=== PATIENT | female | born 1965 | race Caucasian/White ===

== ENCOUNTER 2021-04-14 15:06 | Outpatient (CLI) | payer BC | END 2021-04-14 15:07 | disposition home or self-care (01) | LOC: BICMAMMO 15:06 | PROVIDERS: ATTEND Student in an Organized Health Care Education/Training Program | DX: Z12.31 Encounter for screening mammogram for malignant neoplasm of breast (principal); N64.89 Other specified disorders of breast; Z98.82 Breast implant status | CPT/HCPCS: 77063; 77067 ==

== ENCOUNTER 2021-05-13 10:24 | Outpatient (CLI) | payer BC | END 2021-05-13 10:25 | disposition home or self-care (01) | LOC: BICMAMMO 10:24 | PROVIDERS: ATTEND Student in an Organized Health Care Education/Training Program | DX: C50.412 Malignant neoplasm of upper-outer quadrant of left female breast (principal) | CPT/HCPCS: 19083; 88305; 88341; 88342 ==

== ENCOUNTER 2021-06-08 08:57 | Day surgery (SDC) | payer BC ==
[2021-06-04 13:51] VITALS: BMI 25.0
[2021-06-08] MEDS ORDERED: Fentanyl 100 MCG/2 ML VIAL ONE (11:52)
[2021-06-08] MEDS ORDERED: Isosulfan Blue 50 MG/5 ML VIAL ONE (11:55)
[2021-06-08] MEDS ORDERED: Bupivacaine 0.25% 10 ML VIAL ONE (11:55)
[2021-06-08] MEDS ORDERED: EPINEPHrine 1 MG/ML AMP ONE (11:55)
[2021-06-08] MEDS ORDERED: ceFAZolin 2 GM/DEX 5% 100 ML BAG ONE (12:06)
[2021-06-08] MEDS ORDERED: Ketorolac Tromethamine 30 MG/ML VIAL ONE (12:06)
[2021-06-08] MEDS ORDERED: Acetaminophen 500 MG TAB ONE (12:07)
[2021-06-08] MEDS ORDERED: Dexamethasone 20 MG/5 ML VIAL ONE (12:19)
[2021-06-08] MEDS ORDERED: Ondansetron PF 4 MG/2 ML Vial ONE (12:19)
[2021-06-08] MEDS ORDERED: Lidocaine 1% PF 5 ML VIAL ONE (12:19)
[2021-06-08] MEDS ORDERED: PROPOFOL 200 MG/20 ML VIAL ONE (12:19)
[2021-06-08] MEDS ORDERED: Lidocaine 1% w/Epinephrine 1:100K 30 ML VIAL ONE (12:40)
== END 2021-06-08 15:36 | disposition home or self-care (01) ==
LOC: SDC 08:57
PROVIDERS: ATTEND Specialist
PROC: 0HBU0ZZ Excision of Left Breast, Open Approach (ICD-10-PCS; principal; 2021-06-08)
PROC: 07B60ZX Excision of Left Axillary Lymphatic, Open Approach, Diagnostic (ICD-10-PCS; principal; 2021-06-08)
DX: C50.412 Malignant neoplasm of upper-outer quadrant of left female breast (principal); C77.3 Secondary and unspecified malignant neoplasm of axilla and upper limb lymph nodes; E07.9 Disorder of thyroid, unspecified; I10 Essential (primary) hypertension; Z17.0 Estrogen receptor positive status [ER+]; Z79.899 Other long term (current) drug therapy; Z88.1 Allergy status to other antibiotic agents; Z88.2 Allergy status to sulfonamides
CPT/HCPCS: 76098; 78195; 88305; 88307; A9541; C1713; J0171; J1100; J1885; J2405; J2704; J3010; Q9968; S0020

== ENCOUNTER 2021-06-22 11:40 | Day surgery (SDC) | payer BC ==
[2021-06-17 11:29] VITALS: BMI 25.0
[2021-06-22] MEDS ORDERED: Ketorolac Tromethamine 30 MG/ML VIAL ONE (12:56)
[2021-06-22] MEDS ORDERED: Acetaminophen 500 MG TAB ONE (12:56)
[2021-06-22] MEDS ORDERED: Bupivacaine 0.25% HCL 30 ML VIAL ONE (13:56)
[2021-06-22] MEDS ORDERED: Lidocaine 1% w/Epinephrine 1:100K 20 ML VIAL ONE (13:56)
[2021-06-22] MEDS ORDERED: Midazolam HCl 2 mg/2 ml Vial ONE (14:01)
[2021-06-22] MEDS ORDERED: Fentanyl 100 MCG/2 ML VIAL ONE (14:01)
[2021-06-22] MEDS ORDERED: ceFAZolin (BATCH) 2 GM/100 ML BAG ONE (14:05)
[2021-06-22] MEDS ORDERED: Ondansetron PF 4 MG/2 ML Vial ONE (14:09)
[2021-06-22] MEDS ORDERED: Dexamethasone 20 MG/5 ML VIAL ONE (14:09)
[2021-06-22] MEDS ORDERED: PROPOFOL 200 MG/20 ML VIAL ONE (14:09)
[2021-06-22] MEDS ORDERED: ePHEDrine 50 MG/ML VIAL ONE (14:09)
[2021-06-22] MEDS ORDERED: Lidocaine 1% PF 5 ML VIAL ONE (14:09)
== END 2021-06-22 16:42 | disposition home or self-care (01) ==
LOC: SDC 11:40
PROVIDERS: ATTEND Specialist
PROC: 0HBU0ZZ Excision of Left Breast, Open Approach (ICD-10-PCS; principal; 2021-06-22)
DX: C50.412 Malignant neoplasm of upper-outer quadrant of left female breast (principal); E07.9 Disorder of thyroid, unspecified; I10 Essential (primary) hypertension; Z17.0 Estrogen receptor positive status [ER+]; Z79.890 Hormone replacement therapy; Z79.899 Other long term (current) drug therapy; Z88.1 Allergy status to other antibiotic agents; Z88.2 Allergy status to sulfonamides
CPT/HCPCS: 88307; C1889; J0690; J1100; J1885; J2250; J2405; J2704; J3010; J3490; S0020

== ENCOUNTER 2021-11-11 10:38 | Outpatient (CLI) | payer BC | END 2021-11-11 10:39 | disposition home or self-care (01) | LOC: MRI 10:38 | PROVIDERS: ATTEND Neurological Surgery | DX: M43.16 Spondylolisthesis, lumbar region (principal); M43.17 Spondylolisthesis, lumbosacral region; M51.37 Other intervertebral disc degeneration, lumbosacral region; M48.07 Spinal stenosis, lumbosacral region | CPT/HCPCS: 72148 ==

== ENCOUNTER 2021-12-03 15:53 | Outpatient (CLI) | payer BC ==
[2021-12-03 16:47] LABS: Hemoglobin 12.4 g/dL (12.0-15.5); Mean Corpuscular HGB CONC 33.9 g/dL (32.0-36.0); Mean Corpuscular Hemoglobin 32.1 pg (27.0-33.0); Mean Corpuscular Volume 94.8 fl (81.6-98.3); Mean Platelet Volume 9.6 fl (7.4-10.4); Platelet Count 279 10x3/uL (150-450); RBC Distribution Width 12.3 % (11.5-14.5); Red Blood Cell (RBC) Count 3.86 10x6/uL (3.90-5.03); White Blood Cell (WBC) Count 4.4 10x3/uL (3.5-10.5)
[2021-12-03 17:04] LABS: Anion Gap 12 mmol/L (10-20); BUN (Urea Nitrogen) 12 mg/dL (9.8-20.1); Calc. Creatinine Clearance 0 mL/min (70-130); Calcium 9.3 mg/dL (7.8-10.44); Carbon Dioxide 29 mmol/L (22-29); Chloride 101 mmol/L (98-107); Glucose 127 mg/dL (70-105); Potassium 3.7 mmol/L (3.5-5.1); Sodium 138 mmol/L (136-145)
[2021-12-03 17:47] LABS: Estimated GFR 81
== END 2021-12-03 15:54 | disposition home or self-care (01) ==
LOC: LABBT 15:53
PROVIDERS: ATTEND Neurological Surgery
DX: Z01.818 Encounter for other preprocedural examination (principal); Z20.822 Contact with and (suspected) exposure to COVID-19
CPT/HCPCS: 80048; 85027; 87811; 93005; 93010

== ENCOUNTER 2021-12-07 07:38 | Day surgery (SDC) | payer BC ==
[2021-12-04 12:06] VITALS: BMI 25.7
[2021-12-07] MEDS ORDERED: fentaNYL Citrate/PF 100 MCG/2 ML SYRINGE ONE (10:54)
[2021-12-07] MEDS ORDERED: Midazolam HCl 2 mg/2 ml Vial ONE (10:54)
[2021-12-07] MEDS ORDERED: Lidocaine 2% 6 ML SYR ONE (10:55)
[2021-12-07] MEDS ORDERED: Sodium Chloride 0.9% 100 ML ONE (11:01)
[2021-12-07] MEDS ORDERED: CEFAZOLIN 2 GM VIAL ONE (11:01)
[2021-12-07] MEDS ORDERED: ePHEDrine 50 MG/ML VIAL ONE (11:12)
[2021-12-07] MEDS ORDERED: Rocuronium Bromide 10 MG/ML (10ML VIAL) ONE (11:12)
[2021-12-07] MEDS ORDERED: Ondansetron PF 4 MG/2 ML Vial ONE (11:12)
[2021-12-07] MEDS ORDERED: Ketorolac Tromethamine 30 MG/ML VIAL ONE (11:12)
[2021-12-07] MEDS ORDERED: Dexamethasone 20 MG/5 ML VIAL ONE (11:12)
[2021-12-07] MEDS ORDERED: PROPOFOL 200 MG/20 ML VIAL ONE (11:12)
[2021-12-07] MEDS ORDERED: SUGAMMADEX SODIUM 200 MG/2 ML VIAL ONE (11:39)
[2021-12-07] MEDS ORDERED: HYDROcodone/Acetaminophen 5/325 mg Tablet ONE (13:23)
[2021-12-07] MEDS ORDERED: Morphine 2 MG/ML VIAL ONE ×2 (13:41→14:02)
== END 2021-12-07 15:07 | disposition home or self-care (01) ==
LOC: SDC 07:38
PROVIDERS: ATTEND Neurological Surgery
PROC: 0SG3071 Fusion of Lumbosacral Joint with Autologous Tissue Substitute, Posterior Approach, Posterior Column, Open Approach (ICD-10-PCS; principal; 2021-12-07)
DX: M43.17 Spondylolisthesis, lumbosacral region (principal); Z79.890 Hormone replacement therapy; Z79.899 Other long term (current) drug therapy; Z88.1 Allergy status to other antibiotic agents; Z88.2 Allergy status to sulfonamides
CPT/HCPCS: 76000; C1713; C1768; C1776; J0690; J1100; J1885; J2250; J2270; J2405; J2704; J3370; J3490

== ENCOUNTER 2021-12-21 09:37 | Outpatient (CLI) | payer BC | END 2021-12-21 09:38 | disposition home or self-care (01) | LOC: TBSIIMAG 09:37 | PROVIDERS: ATTEND Neurological Surgery | DX: M43.16 Spondylolisthesis, lumbar region (principal); M47.817 Spondylosis without myelopathy or radiculopathy, lumbosacral region; M51.36 Other intervertebral disc degeneration, lumbar region; Z98.890 Other specified postprocedural states | CPT/HCPCS: 72100 ==

== ENCOUNTER 2022-02-12 09:13 | Outpatient (CLI) | payer BC | END 2022-02-12 09:14 | disposition home or self-care (01) | LOC: TBSIIMAG 09:13 | PROVIDERS: ATTEND Neurological Surgery | DX: M43.16 Spondylolisthesis, lumbar region (principal) | CPT/HCPCS: 72100 ==

== ENCOUNTER 2022-05-13 13:55 | Outpatient (CLI) | payer BC | END 2022-05-13 13:56 | disposition home or self-care (01) | LOC: BICMAMMO 13:55 | PROVIDERS: ATTEND Specialist | DX: C50.412 Malignant neoplasm of upper-outer quadrant of left female breast (principal); Z98.82 Breast implant status; Z98.890 Other specified postprocedural states | CPT/HCPCS: 77066; G0279 ==

== ENCOUNTER 2023-05-16 08:40 | Outpatient (CLI) | payer BC | END 2023-05-16 08:41 | disposition home or self-care (01) | LOC: BICMAMMO 08:40 | PROVIDERS: ATTEND Specialist | DX: Z08 Encounter for follow-up examination after completed treatment for malignant neoplasm (principal); N64.89 Other specified disorders of breast; Z85.3 Personal history of malignant neoplasm of breast | CPT/HCPCS: 77066; G0279 ==

== ENCOUNTER 2024-01-04 11:59 | Outpatient (CLI) | payer BC | END 2024-01-04 12:00 | disposition home or self-care (01) | LOC: DTY/OP 11:59 | PROVIDERS: ATTEND Family Medicine | DX: R63.5 Abnormal weight gain (principal) | CPT/HCPCS: 97802 ==

== ENCOUNTER 2024-02-27 07:42 | Outpatient (CLI) | payer BC ==
[2024-02-27] MEDS ORDERED: Iopamidol 370 76% 100 ML VIAL ONE (12:45)
== END 2024-02-27 07:43 | disposition home or self-care (01) ==
LOC: CT 07:42
PROVIDERS: ATTEND Nurse Practitioner Family
DX: R10.9 Unspecified abdominal pain (principal); K57.30 Diverticulosis of large intestine without perforation or abscess without bleeding
CPT/HCPCS: 36415; 74178; 82565